=== PATIENT | female | born 1965 | race Caucasian/White ===

== ENCOUNTER → 2016-12-18 | Outpatient (CLI) | payer OTHER ==
[~2016-12-18] MED LIST: DARVOCET-N 1001 TAB PO; DIOVAN HCT 160-1 TAB PO; ENBREL50 MG/ML SUBQ; IBUPROFEN PO; LORTAB 7.5-5001 TAB PO; LOTREL PO; VICODIN PO; VOLTAREN75 MG PO; ZESTRIL10 MG PO; ZOFRAN ODT4 MG PO
--- NOTE | ~2016-12-18 | MY11 ---
[facility] A Service of [facility] RADIOLOGY TEXT RESULTS PATIENT: MARTHA HERNANDEZ LOCATION: [facility] : 61 UNIT #: [id number] AGE: [address]: Lei Serrano MD SEX: F ORDER DR: [id number] [address] [address] [id number] O MR#: [id number] Acc #: [id number] NAME: MARTHA HERNANDEZ : 1965 SEX: F STUDY DATE/TIME: 12/18/2016 12:12 UNIT: [facility] ROOM: STUDY DESCRIPTION: MY Mammogram Screening [place] Attending Physician: Lei Serrano M.D. Referring Physician: Lei Serrano M.D. Ordering Physician: Lei Serrano M.D. Primary Care Physician: Honorio Burnett Pa-C MEDICAL IMAGING REPORT This report is preliminary unless electronic signature is present. EXAM Digital screening mammogram 12/18/2016 [facility] HISTORY 51-year-old woman previous left lumpectomy with adjuvant radiation therapy 2007. Annual screen. COMPARISON Mammograms date to 08/12/2007 with most recent 09/07/2014. FINDINGS Digital imaging of each breast was completed utilizing screening protocol. Review includes FDA-approved CAD device. Breast parenchyma is partially fatty replaced and mildly heterogeneous bilaterally. Post lumpectomy distortion of the left breast is again noted with loss stellate scar in the lumpectomy bed immediately deep to the left nipple. There is combined nipple areolar retraction stable at the surgical site. There appears to be some thickening as well possibly related to previous radiation. This is unchanged. I see no interval occurring mass or parenchymal density and no suspicious microcalcifications. There is an image-guided biopsy marker immediately adjacent to the stellate lumpectomy scar indicating previous sampling. IMPRESSION Benign mammogram with stable post lumpectomy sequelae left breast. Annual screening recommended. Patient's over the age of 40 are entered into a reminder system with target due date for the next mammogram. A result letter will be sent to the patient. BIRADS: 2 Benign findings. STS. [facility] A Service of [facility] RADIOLOGY TEXT RESULTS PATIENT: MARTHA HERNANDEZ LOCATION: [facility] #: [id number] : 61 UNIT #: [id number] AGE: [address]: Lei Serrano MD SEX: F ORDER DR: Dictated by... Xavier Garrett M.D. THIS IS AN ELECTRONICALLY VERIFIED REPORT Xavier Garrett M.D. at 12/19/2016 8:11 AM GURJIT/val TD: 12/18/2016 16:56 JOB #: [id number] MEDICAL IMAGING REPORT Page 1 of 1
== END | disposition home or self-care (01) ==
LOC: SMAM 11:29
DX: Z12.31 Encounter for screening mammogram for malignant neoplasm of breast (principal); Z98.890 Other specified postprocedural states; Z92.3 Personal history of irradiation
CPT/HCPCS: G0202